=== PATIENT | male | born 2000 | race Two or more races ===

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

== ENCOUNTER 2018-09-11 09:51 | Emergency (ER) | payer OTHER ==
[2018-09-11 10:06] VITALS: BP 144/77
--- NOTE | 2018-09-11 11:28 | XRAY Report ---
Reason: right foot injury Procedure Date: 09/11/2018 Accession Number: [id number] / [id number] Procedure: XR - Foot 3 View RT CPT Code: FULL RESULT: EXAM: RIGHT FOOT RADIOGRAPHY EXAM DATE: 09/11/2018 11:12 AM. CLINICAL HISTORY: Right foot injury. COMPARISON: None. TECHNIQUE: 3 views. FINDINGS: Bones: No fractures or bone lesions. Joints: Normal alignment. No subluxations. Soft Tissues: Mild regional soft tissue swelling. IMPRESSION: Mild regional soft tissue swelling. No fracture or subluxation. RADIA
--- NOTE | 2018-09-11 12:30 | ED Physician Documentation ---
PD HPI LOWER EXT INJURY - Stated complaint Stated Complaint: RT FOOT INJ - Chief complaint Chief Complaint: Ext Problem - History obtained from History obtained from: Patient, Family - History of Present Illness PD HPI LOW EXT INJURY LOCATION: Right, Foot Type of injury: Blunt / blow (accidentally kick furniture while playing at home.) Where injury occurred: Home Timing - onset: How many days ago (3) Timing - duration: Days (3) Timing - details: Abrupt onset, Still present Severity Comments: moderate Improved by: Rest, Ice, Immobilization Worsened by: Palpating Associated symptoms: Swelling. No: Weakness, Numbness, Tingling, Discolored Contributing factors: No: Anticoagulated, Prior ortho surgery, Prosthetic joint, Work related Similar symptoms before: Has not had sx before Recently seen: Not recently seen Review of Systems Ten Systems: 10 systems reviewed and negative Constitutional: denies: Fever Cardiac: reports: Reviewed and negative Respiratory: reports: Reviewed and negative GI: reports: Reviewed and negative Skin: reports: Reviewed and negative Musculoskeletal: reports: Joint pain, Joint swelling Neurologic: denies: Focal weakness, Numbness PD PAST MEDICAL HISTORY - Past Medical History Past Medical History: Yes Cardiovascular: None Respiratory: None Neuro: None Endocrine/Autoimmune: None GI: None : None HEENT: None Psych: ADD/ADHD Musculoskeletal: None Derm: None - Past Surgical History Past Surgical History: Yes HEENT: Tonsil/Adenoidectomy - Present Medications Home Medications: Ambulatory Orders Medication Instructions Recorded Confirmed Vivance 70 mg PO DAILY 05/27/17 09/11/18 - Allergies Allergies/Adverse Reactions: Allergies Allergy/AdvReac Type Severity Reaction Status Date / Time No Known Drug Allergies Allergy Verified 12/11/17 15:32 - Social History Does the pt smoke?: No Smoking Status: Never smoker Does the pt drink ETOH?: No Does the pt have substance abuse?: No - Immunizations Immunizations are current?: Yes - POLST Patient has POLST: No PD ED PE NORMAL - Vitals Vital signs reviewed: Yes - General General: Alert and oriented X 3, No acute distress, Well developed/nourished - HEENT HEENT: Atraumatic - Neck Neck: Supple, no meningeal sign, No JVD - Cardiac Cardiac: RRR - Respiratory Respiratory: No respiratory distress - Abdomen Abdomen: Non distended - Male Male : Deferred - Rectal Rectal: Deferred - Derm Derm: Normal color, Warm and dry, No rash - Extremities Extremities: No deformity, Normal ROM s pain, No calf tenderness / cord - Neuro Neuro: Alert and oriented X 3 Eye Opening: Spontaneous Motor: Obeys Commands Verbal: Oriented GCS Score: 15 - Psych Psych: Normal mood, Normal affect PD ED PE EXPANDED - Extremities Extremities: Tenderness (dorsum of right lateral mid foot ), Swelling - Neuro Neuro: Normal gait Results - Vitals Vitals: Vital Signs - 24 hr 09/11/18 10:03 Temperature 36.5 C Heart Rate 70 Respiratory 16 Rate Blood Pressure 144/77 H O2 Saturation 98 Oxygen O2 Source Room air - Rads (name of study) right foot xray Radiology: Final report received, EMP read contemporaneously, See rad report (negative for fx or acute injury ) PD MEDICAL DECISION MAKING - ED course Complexity details: reviewed results, considered differential, d/w patient, d/w family ED course: ddx- fx, sprain, contusion 17 y/o M with R foot pain s/p kicking a piece of furniture. Able to bear weight. Neg xray. Likely contusion. Continue supportive care at home. Departure - Departure Disposition: 01 Home, Self Care Clinical Impression: Contusion of foot, left Qualifiers: Encounter type: initial encounter Qualified Code(s): S90.32XA - Contusion of left foot, initial encounter Condition: Stable Record reviewed to determine appropriate education?: Yes Instructions: ED Contusion Foot Follow-Up: your, doctor [Other] - As Needed Comments: Your xray was negative for any fracture. Discharge Date/Time: 09/11/18 12:40
== END 2018-09-11 12:40 | disposition home or self-care (01) ==
LOC: ED 09:51
DX: S90.31XA Contusion of right foot, initial encounter (principal); W22.03XA Walked into furniture, initial encounter; Y92.009 Unspecified place in unspecified non-institutional (private) residence as the place of occurrence of the external cause
CPT/HCPCS: 99282; 99283